=== PATIENT | male | born 1995 | race Caucasian/White ===

== ENCOUNTER 2025-01-27 18:03 | Inpatient (IN) | payer MEDICAID, SELFPAY ==
[2025-01-27 18:24] VITALS: BP 139/95; PULSE 115; RESP 18; O2SAT 98
[2025-01-27 18:33] VITALS: BMI 29.8
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
--- NOTE | 2025-01-27 19:40 | PC.NURSE ---
Pt refused flu vaccine at this time
--- NOTE | 2025-01-27 19:40 | PC.ADMIT ---
Gen is a 29-year-old male admitted from [facility] in [place] to M3 01/27/251816 on a 12A for treatment of depression, suicidal ideation and self-inflicted lacerations. Tox screen not performed. Pt reports drinking 1/2 bottle of herrera knapp per day, last drink was 01/27 in the morning. Pt reports smoking marijuana daily, denies any other substance use. Per crisis eval, pt presented to ED due to worsening depression. He states that he normally engages in self-inflicted laceration and also has a seasonal recruiter who engages in inflicting harm to him which is consensual. Upon arrival to M3, pt was A&Ox4, pleasant and cooperative. Pt exhibited humor and was cooperative with admission process. He reported that his father is living with him which has been a major stressor. He said I came here because I couldn't find my wallet so I got drunk, cut myself, said that I don't want to be alive anymore. Pain makes me feel peaceful. Pt adamantly denies SI/HI/AH/VH. He also reports difficulty maintaining relationships because I'm always giving them so much and I never get the same treatment in return. Pt hopes to be established with providers once discharged. Pt placed on 15 minute checks for safety.
--- NOTE | 2025-01-27 21:30 | P.CONHOSP_ITS ---
History of Present Illness Data of Consult Service Date: 01/27/25 Requesting physician: Aleah Whaley Primary Care Provider: Unknown Physician HPI Reason for consult: medical H&P Patient is a 29-year-old male with a past medical history significant for alcohol use disorder, transferred from [facility] due to depression, SI and self-inflicted lacerations. The patient reports drinking half a bottle of Juan Curiel per day, last drink yesterday morning. He reports smoking marijuana but no additional substance use. Medical history was reviewed with the patient, no baseline medications. He denies any chest pain, shortness of breath, nausea, vomiting, headaches, visual changes, visual/auditory hallucinations or any bothersome symptoms at this time. Review of Systems Constitutional: Constitutional: Denies body ache(s), Denies chills, Denies fatigue, Denies fever(s) and Denies headache(s) Eyes: Eyes: Denies change in vision ENT: Denies headache(s), Denies nasal congestion and Denies sore throat Cardiovascular: Cardiovascular: Denies chest pain, Denies rapid heart rate, Denies leg edema, Denies lightheadedness and Denies dyspnea Respiratory: Respiratory: Denies chest congestion, Denies cough, Denies dyspnea and Denies wheezing Gastrointestinal: Gastrointestinal: Denies abdominal pain, Denies diarrhea, Denies nausea and Denies vomiting Genitourinary: Genitourinary: Denies dysuria, Denies urinary frequency and Denies urinary urgency Musculoskeletal: Musculoskeletal: Denies myalgias Integumentary/Breasts: Skin/Breast: Denies rash Neurologic: Denies confusion and Denies headache(s) Psychiatric: Psychiatric: Denies confusion Endocrine: Endocrine: Denies fatigue Hematologic/Lymphatic: Hematologic/Lymphatic: Denies easy bleeding Allergic/Immunologic: Allergic/Immunologic: Denies wheezing [facility] Medical History (Updated 01/27/25 @ 21:35 by Gloria Donaldson PA-C) Alcohol use disorder Functional capacity: independent ambulation Social History Household Members: Family Housing: Apartment Do you presently have visiting nurse or other home services: No Patient Tobacco Use Status: Never used Tobacco Second Hand Smoke Exposure: No Have you been hit, kicked, punched, or otherwise hurt by someone within the past year? If so, by whom?: No Do you feel safe in your current relationship?: No Current Relationship Is there a partner from a previous relationship who is making you feel unsafe now?: No Are you made to feel afraid or neglected: No Advance Directives: No Advance Directives Information Provided: Yes Do you have a plan to hurt others: No Plan Recently lost weight without trying: No Eating poorly because of decreased appetite: No Nutrition Risks: No Nutritional Risk Poor oral hygiene: No Narrative: 1/2 bottle juan curiel/day, marijuanna daily, no smoking Meds Allergies Allergy/AdvReac Type Severity Reaction Status Date / Time No Known Allergies Allergy Verified 01/27/25 18:13 Active Medications: Current Medications Acetaminophen (Acetaminophen 325 Mg Tablet) 650 mg PO Q6H PRN PRN Reason: Headache/Pain, Scale 1-10 Al Hydroxide/Mg Hydroxide (Magnesium Hydrox/Alum Hydrox 30 Ml Oral.Susp) 30 ml PO Q6H PRN PRN Reason: Heartburn/Nausea Bupropion HCl (Bupropion Hcl Xl 150 Mg Tab.Er.24h) 150 mg PO DAILY NESS Hydroxyzine HCl (Hydroxyzine Hcl 25 Mg Tablet) 25 mg PO Q6H PRN PRN Reason: mild anxiety Lorazepam (Lorazepam 1 Mg Tablet) 1 mg PO Q2H PRN PRN Reason: CIWA 8-11 Lorazepam (Lorazepam 1 Mg Tablet) 2 mg PO Q2H PRN PRN Reason: CIWA 12-15 Magnesium Hydroxide (Milk Of Magnesia 30 Ml Oral.Susp) 30 ml PO DAILY PRN PRN Reason: Constipation Nicotine (Nicotine 21 Mg Patch.Td24) 21 mg TRANSDERMA DAILY PRN PRN Reason: nicotine craving Nicotine Polacrilex (Nicotine Polacrilex 2 Mg Gum) 2 mg BUCCAL Q2H PRN PRN Reason: Nicotine Cravings Olanzapine (Olanzapine 5 Mg Tablet) 5 mg PO BID PRN PRN Reason: agitation Thiamine HCl (Thiamine Hcl 100 Mg Tablet) 100 mg PO DAILY NESS Trazodone HCl (Trazodone Hcl 50 Mg Tablet) 50 mg PO BEDTIME MRX1 PRN PRN Reason: Insomnia Home Medications ?Medication ?Instructions ?Recorded ?Confirmed ?Last Taken ?Type No Known Home Meds 01/27/25 01/27/25 Un known History Physical Exam Vital Signs and Narrative: Vital Signs: Last Vital Signs Pulse 115 H 01/27/25 18:24 Resp 18 01/27/25 18:24 BP 139/95 H 01/27/25 18:24 Pulse Ox 98 01/27/25 18:24 O2 Del Method Room Air 01/27/25 18:24 BMI result Body Mass Index 29.8 General: AOx3, no acute distress, diaphoretic but pt was doing pushups when I came to see him Resp: CTA bilaterally CVS: S1, S2, RRR GI: +BS, NT, no distention Skin: Warm, dry. healing lacerations R forearm, no surrounding erythema, warmth or sign of infection Neuro: Cranial nerves II-XII grossly intact bilaterally. Motor grossly intact bilaterally. 5/5 strength bilateral upper and lower extremities bilaterally. Extremities: No pitting edema Psych: Appropriate affect Const: General: No confusion Orientation/consciousness: No confusion Neuro: General: No confusion Assessment and Plan (1) Medical clearance for psychiatric admission: Status: Acute (2) Alcohol use disorder: Status: Acute Plan Patient is a 29-year-old male with a past medical history significant for alcohol use disorder, transferred from [facility] due to depression, SI and self-inflicted lacerations. SI/mood - plan per psych AUD, no hx etoh withdrawal - etoh level 174 yesterday in ED - monitor CIWA - psych floor ativan protocol - pt not showing signs of withdrawal currently, CIWA 0 - addiction med consult Thank you for allowing me to participate in the pt's care. Signing off. Please contact the medical team if any questions or concerns.
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
[2025-01-28 07:44] VITALS: BP 139/83; PULSE 84; RESP 18; TEMP 36.9; O2SAT 99
[2025-01-28 08:51] LABS: Alanine Aminotransferase 92 U/L (0-40); Albumin Level 5.2 g/dL (3.5-5.0); Alkaline Phosphatase 80 U/L (39-117); Anion Gap 14 (12-20); Aspartate Amino Transferase 76 U/L (5-37); Blood Urea Nitrogen 21 mg/dL (9-16); Calcium 10.4 mg/dL (8.4-10.2); Carbon Dioxide 27 mmol/L (22-29); Chloride 103 mmol/L (96-108); Cholesterol 168 mg/dL (<200); Creatinine Clr Calc Pharmacy 103.3; Estimated Glomerular Filt Rate > 60; HDL Cholesterol 36 mg/dL (>40); Potassium 4.4 mmol/L (3.3-5.1); Sodium 140 mmol/L (135-145); Total Protein 8.6 g/dL (6.5-8.0); Triglycerides 127 mg/dL (<150)
[2025-01-28 09:08] LABS: Free T4 (Free Thyroxine) 1.14 ng/dL (0.71-1.85); Thyroid Stimulating Hormone 1.26 uIU/mL (0.32-4.0)
[2025-01-28 09:20] LABS: Folate 5.4 ng/mL (> or = 4.0); Vitamin B12 300 pg/mL (200-900)
[2025-01-28] MEDS: buPROPion HCl XL 150 MG TAB.ER.24H PO (09:36)
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
[2025-01-28 20:10] VITALS: BP 133/74; PULSE 96; RESP 16; TEMP 36.8; O2SAT 97
[2025-01-29 08:15] VITALS: BP 128/68; PULSE 105; RESP 14; TEMP 36.3; O2SAT 98
[2025-01-29] MEDS: buPROPion HCl XL 150 MG TAB.ER.24H PO (08:28)
--- NOTE | 2025-01-29 09:46 | P.PNPSI_ITS ---
Subjective Subjective Date of Service: 01/29/25 Reason For Visit: Major Deressive D/O recurrent alchohol use disorde Subjective Notes: Conditional Voluntary Interim History: Patient was seen and discussed in rounds today. Records and plans were reviewed. He has settled in and is doing a little better. He scored low on his CIWA. I will leave it for today and can probably be discontinued tomorrow. Tearful at times. No groups. Isolative. Talked openly with staff. Denies any side effects on Wellbutrin which can probably be increased tomorrow. Slept 5 hours. No active SI. No changes were made today Mental Status Exam Mental Status Exam Narrative: In today's visit he is alert, oriented and pleasant. Normal speech. Good eye contact. Affect is appropriate and varied. No signs of psychosis. No AVH. No delusions. No SI. Cognitively intact. Judgment is intact. Moves all limbs. No gait abnormalities. Diagnostics Vital Signs (24Hr): Vital Signs - 24 hr 01/28/25 20:10 01/29/25 08:15 Temperature 98.2 F 97.3 F Pulse Rate 96 105 H Respiratory Rate 16 14 Blood Pressure 133/74 128/68 Pulse Oximetry 97 98 Oxygen Delivery Method Room Air Room Air BMI result Body Mass Index 29.8 Labs 01/28/25 08:14 Labs: Laboratory Results - last 48 hr 01/28/25 08:14 Sodium 140 Potassium 4.4 Chloride 103 Carbon Dioxide 27 Anion Gap 14 BUN 21 H Creatinine 1.06 Estim Creat Clear Calc 103.3 Estimated GFR > 60 Random Glucose 141 H Estimat Average Glucose 151 Hemoglobin A1c % 6.9 H Calcium 10.4 H Total Bilirubin 1.5 H AST 76 H ALT 92 H Alkaline Phosphatase 80 Total Protein 8.6 H Albumin 5.2 H Triglycerides 127 Cholesterol 168 LDL Cholesterol, Calc 107 H HDL Cholesterol 36 L Vitamin B12 300 Folate 5.4 TSH 1.26 Free T4 1.14 Medications Medications Current Medications Acetaminophen (Acetaminophen 325 Mg Tablet) 650 mg PO Q6H PRN PRN Reason: Headache/Pain, Scale 1-10 Al Hydroxide/Mg Hydroxide (Magnesium Hydrox/Alum Hydrox 30 Ml Oral.Susp) 30 ml PO Q6H PRN PRN Reason: Heartburn/Nausea Bacitracin (Bacitracin Oint 14 Gm Tube) 1 appl TOPICAL BID NESS; Protocol Last Admin: 01/29/25 08:29 Dose: Not Given Bupropion HCl (Bupropion Hcl Xl 150 Mg Tab.Er.24h) 150 mg PO DAILY [facility] Last Admin: 01/29/25 08:28 Dose: 150 mg Hydroxyzine HCl (Hydroxyzine Hcl 25 Mg Tablet) 25 mg PO Q6H PRN PRN Reason: mild anxiety Lorazepam (Lorazepam 1 Mg Tablet) 1 mg PO Q2H PRN PRN Reason: CIWA 8-11 Lorazepam (Lorazepam 1 Mg Tablet) 2 mg PO Q2H PRN PRN Reason: CIWA 12-15 Magnesium Hydroxide (Milk Of Magnesia 30 Ml Oral.Susp) 30 ml PO DAILY PRN PRN Reason: Constipation Nicotine (Nicotine 21 Mg Patch.Td24) 21 mg TRANSDERMA DAILY PRN PRN Reason: nicotine craving Nicotine Polacrilex (Nicotine Polacrilex 2 Mg Gum) 2 mg BUCCAL Q2H PRN PRN Reason: Nicotine Cravings Olanzapine (Olanzapine 5 Mg Tablet) 5 mg PO BID PRN PRN Reason: agitation Ondansetron HCl (Ondansetron Odt 4 Mg Tab.Rapdis) 4 mg TRANSLINGU Q6H PRN PRN Reason: Nausea and Vomiting Thiamine HCl (Thiamine Hcl 100 Mg Tablet) 100 mg PO DAILY [facility] Last Admin: 01/29/25 08:28 Dose: 100 mg Trazodone HCl (Trazodone Hcl 50 Mg Tablet) 50 mg PO BEDTIME MRX1 PRN PRN Reason: Insomnia Allergies Allergies Allergy/AdvReac Type Severity Reaction Status Date / Time No Known Allergies Allergy Verified 01/27/25 18:13 Assessment & Plan Assessment & Plan (1) Major depressive disorder, recurrent episode, unspecified: Status: Acute Code(s): F33.9 - Major depressive disorder, recurrent, unspecified (2) Alcohol use disorder: Status: Acute Code(s): F10.90 - Alcohol use, unspecified, uncomplicated (3) ADHD: Status: Acute Code(s): F90.9 - Attention-deficit hyperactivity disorder, unspecified type (4) Autism: Status: Acute Code(s): F84.0 - Autistic disorder (5) Suicidal behavior: Status: Acute Code(s): R45.89 - Other symptoms and signs involving emotional state Plan HPI: patient is a 29 y.o Malay speaking male with hx of depression,anxiety, autism, ADHD who presents with complaint of SI and self-inflicted laceration. Patient reports that he came in about 7 days ago however waited a long time and not seen so he left. Report his mental health has been deteriorating/. Patient sees a therapist as needed. Also reports that he has a Supervisor [employer]ing [employer] who consensual engages in inflicting harm to him. Patient was drunk, black out, cut self and was caught by camera by his cousin who brought him back in the ED. Formulation/clinical reasoning: Overwhelmed, over thinking, increased in anxiety symptoms, SI with inflicted wound/laceration, increasing in alcohol use. resist to treatment. Poor insight and judgment. Thinking he could do everything himself. Hx of ADHD, Autism, MDD, and anxiety. No current treatment, not on meds. No OP providers. Limited family/community support. Given above information. Patient would benefit in restrictive environment for safety, medication management, and refer patient to OP psychiatric services for aftercare. Hospital course: 01/27/25: Start on Wellbutrin XL 150mg for mood/anxiety/depression CIWA protocol q4hr with Ativan PRN. Zofran 4mg PRN for N/V Bacitracin BID on laceration on left arm Reviewed med list with patient regarding PRNs. Plan Patient on 15 minute checks for safety. Admitted to [facility]. TDN Thursday. Work with treatment team to do collateral. Refer to patient to commercial loan specialist: pending Contact the hospitalist regarding hospitalist consultation on admission:pending 01/28:Continue current regimen and plans 01/29:Continue current regimen and plans Reason for continued inpatient stay Substantial Risk for: harm to self and med/psych decompensation Time Spent With Patient Time: Total time managing care of this patient today ____ minutes.
--- NOTE | 2025-01-29 15:37 | MHC.RECOVRN ---
Pt is a 29yo male with a history of Depression and anxiety who was admitted to [facility] for tx of SI w/ SIB. Met w pt in 323 after receiving an addiction consult for evaluation of alcohol use disorder. Upon approach pt is calm, oriented, and talking with peers in the common area of . He is receptive to conversation regarding his alcohol use. Pt reports drinking 6oz to 1/2 of 750mL bottle of Juan Curiel daily or occasionally for the past year. He denies hx of withdrawal seizures or DTs. His last drink was on 01/27. At this time pt is on CIWAS but hasn't been scoring and denies withdrawal symptoms. He appears to be comfortable without any apparent evidence of withdrawal symptoms. Pt is interested in tx recommendations and discussing LUIS E with the addiction medicine provider. He states he has never been to treatment r/t AUD. During the assessment low-risk drinking guidelines were reviewed. Pt was counseled on specific harm-reduction strategies including setting a personal limit of no more than 1-2 drinks per occasion, alternating alcohol with water, pacing intake, and eating food prior to and during drinking.? Reviewed w/ pt the medical risks of heavy or daily use, including liver damage, gastrointestinal irritation, cardiovascular strain, and the dangers of abrupt withdrawal in dependent individuals.? Pt was advised on nutrition, hydration, and vitamin supplementation, including the potential benefit of daily thiamine and multivitamins if use continues at higher levels. Reviewed pt?s readiness for change using motivational interviewing, and reaffirmed pt?s personal values such as his friendships/relationships, finances, and mental health. Treatment options were discussed, including LUIS E, and inpatient & outpatient treatment (ATS, CSS, TSS, IOPs).? Pt agreed to discuss LUIS E with the Addiction Medicine provider and is interested in recovery coaching. ACS team will continue to meet w/pt to support recovery needs. Pt denies questions or concerns. ACS team contact info provided should any questions arise.?
[2025-01-29 19:35] VITALS: BP 138/85; PULSE 130; RESP 16; TEMP 36.2; O2SAT 98
[2025-01-29 23:55] VITALS: PULSE 97; RESP 18
[2025-01-30 04:00] VITALS: PULSE 87; RESP 16
[2025-01-30 07:42] VITALS: BP 167/72; PULSE 85; RESP 20; TEMP 36.3; O2SAT 99
[2025-01-30] MEDS: buPROPion HCl XL 150 MG TAB.ER.24H PO (08:56)
--- NOTE | 2025-01-30 12:48 | HO.PSYCHPN ---
Subjective Subjective Date of Service: 01/30/25 Reason For Visit: Major Deressive D/O recurrent alchohol use disorde Subjective Notes: 3 Day Interim History: Active on unit. social with peers. attending groups. 3 day up on 02/01/25. Patient tearful at times during assessment. Patient reports he doesn't believe he has an alcohol use problem however, after discussing his drinking habits he came to the conclusion that he does have a problem and would like a referral to an outpatient therapist; psychiatric social worker supervisor aware. Patient reports he made a stupid statement while I was drunk about wanting to harm myself but I have no intention of hurting myself . denies SI/HI/VH/AH. continue CIWA. continue current tx plan. Medication Compliance: Yes Side effects from medications: No Attending Groups: Yes Mental Status Exam Mental Status Exam Narrative: Pt is alert and oriented; behavior is cooperative and calm, tearful; dressed in casual attire; mood is described as depressed ; eye contact appropriate; Speech is normal rate, volume and not pressured; thought process is organized; Thought content is on tx; denies SI/HI/VH/AH. Diagnostics Vital Signs (24Hr): Vital Signs - 24 hr 01/29/25 19:35 01/29/25 23:55 01/30/25 04:00 Temperature 97.2 F Pulse Rate 130 H 97 87 Respiratory Rate 16 18 16 Blood Pressure 138/85 Pulse Oximetry 98 Oxygen Delivery Method Room Air 01/30/25 07:42 Temperature 97.4 F Pulse Rate 85 Respiratory Rate 20 Blood Pressure 167/72 H Pulse Oximetry 99 Oxygen Delivery Method Room Air BMI result Body Mass Index 29.8 Labs 01/28/25 08:14 Medications Medications Current Medications Acetaminophen (Acetaminophen 325 Mg Tablet) 650 mg PO Q6H PRN PRN Reason: Headache/Pain, Scale 1-10 Al Hydroxide/Mg Hydroxide (Magnesium Hydrox/Alum Hydrox 30 Ml Oral.Susp) 30 ml PO Q6H PRN PRN Reason: Heartburn/Nausea Bacitracin (Bacitracin Oint 14 Gm Tube) 1 appl TOPICAL BID NESS; Protocol Last Admin: 01/30/25 09:06 Dose: Not Given Bupropion HCl (Bupropion Hcl Xl 150 Mg Tab.Er.24h) 150 mg PO DAILY NESS Last Admin: 01/30/25 08:56 Dose: 150 mg Hydroxyzine HCl (Hydroxyzine Hcl 25 Mg Tablet) 25 mg PO Q6H PRN PRN Reason: mild anxiety Lorazepam (Lorazepam 1 Mg Tablet) 1 mg PO Q2H PRN PRN Reason: CIWA 8-11 Last Admin: 01/29/25 20:06 Dose: 1 mg Lorazepam (Lorazepam 1 Mg Tablet) 2 mg PO Q2H PRN PRN Reason: CIWA 12-15 Magnesium Hydroxide (Milk Of Magnesia 30 Ml Oral.Susp) 30 ml PO DAILY PRN PRN Reason: Constipation Nicotine (Nicotine 21 Mg Patch.Td24) 21 mg TRANSDERMA DAILY PRN PRN Reason: nicotine craving Nicotine Polacrilex (Nicotine Polacrilex 2 Mg Gum) 2 mg BUCCAL Q2H PRN PRN Reason: Nicotine Cravings Olanzapine (Olanzapine 5 Mg Tablet) 5 mg PO BID PRN PRN Reason: agitation Last Admin: 01/29/25 16:57 Dose: 5 mg Ondansetron HCl (Ondansetron Odt 4 Mg Tab.Rapdis) 4 mg TRANSLINGU Q6H PRN PRN Reason: Nausea and Vomiting Thiamine HCl (Thiamine Hcl 100 Mg Tablet) 100 mg PO DAILY NESS Last Admin: 01/30/25 08:56 Dose: 100 mg Trazodone HCl (Trazodone Hcl 50 Mg Tablet) 50 mg PO BEDTIME MRX1 PRN PRN Reason: Insomnia Allergies Allergies Allergy/AdvReac Type Severity Reaction Status Date / Time No Known Allergies Allergy Verified 01/27/25 18:13 Assessment & Plan Assessment & Plan (1) Major depressive disorder, recurrent episode, unspecified: Status: Acute Code(s): F33.9 - Major depressive disorder, recurrent, unspecified (2) Alcohol use disorder: Status: Acute Code(s): F10.90 - Alcohol use, unspecified, uncomplicated (3) ADHD: Status: Acute Code(s): F90.9 - Attention-deficit hyperactivity disorder, unspecified type (4) Autism: Status: Acute Code(s): F84.0 - Autistic disorder (5) Suicidal behavior: Status: Acute Code(s): R45.89 - Other symptoms and signs involving emotional state Plan patient is a 29 y.o Turkish speaking male with hx of depression,anxiety, autism, ADHD who presents with complaint of SI and self-inflicted laceration. Patient reports that he came in about 7 days ago however waited a long time and not seen so he left. Report his mental health has been deteriorating/. Patient sees a therapist as needed. 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 Patient was drunk, black out, cut self and was caught by camera by his cousin who brought him back in the ED. Formulation/clinical reasoning: Overwhelmed, over thinking, increased in anxiety symptoms, SI with inflicted wound/laceration, increasing in alcohol use. resist to treatment. Poor insight and judgment. Thinking he could do everything himself. Hx of ADHD, Autism, MDD, and anxiety. No current treatment, not on meds. No OP providers. Limited family/community support. Given above information. Patient would benefit in restrictive environment for safety, medication management, and refer patient to OP psychiatric services for aftercare. Plan: Patient on 15 minute checks for safety. Admitted to [facility]. TDN Thursday. Work with treatment team to do collateral. Refer to patient to physician credentialing specialist: pending Contact the hospitalist regarding hospitalist consultation on admission:pending 01/27: Start on Wellbutrin XL 150mg for mood/anxiety/depression. CIWA protocol q4hr with Ativan PRN. Zofran 4mg PRN for N/V Bacitracin BID on laceration on left arm. Reviewed med list with patient regarding PRNs. 01/28:Continue current regimen and plans 01/29:Continue current regimen and plans 01/30: Active on unit. social with peers. attending groups. 3 day up on 02/01/25. Patient tearful at times during assessment. Patient reports he doesn't believe he has an alcohol use problem however, after discussing his drinking habits he came to the conclusion that he does have a problem and would like a referral to an outpatient therapist; psychiatric social worker supervisor aware. Patient reports he made a stupid statement while I was drunk about wanting to harm myself but I have no intention of hurting myself . denies SI/HI/VH/AH. continue CIWA. continue current tx plan. Patient educated on: diagnosis, medication risk/benefits, substance abuse and therapeutic strategies Reason for continued inpatient stay Substantial Risk for: med/psych decompensation Time Spent With Patient Time: Total time managing care of this patient today _20___ minutes.
--- NOTE | 2025-01-30 13:53 | PM.EVENT ---
Event Note Date of Service: 01/30/25 Event Note: Addiction consult placed for patient related to alcohol use Seen by franchise business consultant over the weekend-expressed interest in possibly starting LUIS E Discussed with attending provider-they will follow up with patient regarding this No follow up indicated at this time from [facility] Time Spent With Patient Time: Total time managing care of this patient today ____ minutes.
[2025-01-30 19:54] VITALS: BP 131/72; PULSE 127; RESP 18; TEMP 36.8; O2SAT 97
[2025-01-31 08:00] VITALS: BP 126/77; PULSE 67; RESP 16; TEMP 36.3; O2SAT 98
[2025-01-31] MEDS: buPROPion HCl XL 150 MG TAB.ER.24H PO (08:41)
--- NOTE | 2025-01-31 11:50 | HO.PSYCHPN ---
Subjective Subjective Date of Service: 01/31/25 Reason For Visit: Major Deressive D/O recurrent alchohol use disorde Subjective Notes: 3 Day Interim History: Active on unit. social with peers. attending groups. Patient reports feeling better ; pt stated, I know I need to stop drinking. I plan on going to the gym with my sister and looking up AA meetings. I know I need to be disciplined . denies SI/HI/VH/AH. Patient denies withdrawal symptoms. EPIFANIO MARCELINO. 3 day notice up on 02/01/25. Medication Compliance: Yes Side effects from medications: No Attending Groups: Yes Mental Status Exam Mental Status Exam Narrative: Pt is alert and oriented; behavior is cooperative and calm; dressed in casual attire; mood is described as better ; eye contact appropriate; Speech is normal rate, volume and not pressured; thought process is organized; Thought content is on tx/discharge; denies SI/HI/VH/AH. Diagnostics Vital Signs (24Hr): Vital Signs - 24 hr 01/30/25 19:54 01/31/25 08:00 Temperature 98.2 F 97.4 F Pulse Rate 127 H 67 Respiratory Rate 18 16 Blood Pressure 131/72 126/77 Pulse Oximetry 97 98 Oxygen Delivery Method Room Air Room Air BMI result Body Mass Index 29.8 Labs 01/28/25 08:14 Medications Medications Current Medications Acetaminophen (Acetaminophen 325 Mg Tablet) 650 mg PO Q6H PRN PRN Reason: Headache/Pain, Scale 1-10 Al Hydroxide/Mg Hydroxide (Magnesium Hydrox/Alum Hydrox 30 Ml Oral.Susp) 30 ml PO Q6H PRN PRN Reason: Heartburn/Nausea Bacitracin (Bacitracin Oint 14 Gm Tube) 1 appl TOPICAL BID NESS; Protocol Last Admin: 01/31/25 09:18 Dose: Not Given Bupropion HCl (Bupropion Hcl Xl 150 Mg Tab.Er.24h) 150 mg PO DAILY NESS Last Admin: 01/31/25 08:41 Dose: 150 mg Hydroxyzine HCl (Hydroxyzine Hcl 25 Mg Tablet) 25 mg PO Q6H PRN PRN Reason: mild anxiety Magnesium Hydroxide (Milk Of Magnesia 30 Ml Oral.Susp) 30 ml PO DAILY PRN PRN Reason: Constipation Nicotine (Nicotine 21 Mg Patch.Td24) 21 mg TRANSDERMA DAILY PRN PRN Reason: nicotine craving Nicotine Polacrilex (Nicotine Polacrilex 2 Mg Gum) 2 mg BUCCAL Q2H PRN PRN Reason: Nicotine Cravings Olanzapine (Olanzapine 5 Mg Tablet) 5 mg PO BID PRN PRN Reason: agitation Last Admin: 01/29/25 16:57 Dose: 5 mg Ondansetron HCl (Ondansetron Odt 4 Mg Tab.Rapdis) 4 mg TRANSLINGU Q6H PRN PRN Reason: Nausea and Vomiting Trazodone HCl (Trazodone Hcl 50 Mg Tablet) 50 mg PO BEDTIME MRX1 PRN PRN Reason: Insomnia Allergies Allergies Allergy/AdvReac Type Severity Reaction Status Date / Time No Known Allergies Allergy Verified 01/27/25 18:13 Assessment & Plan Assessment & Plan (1) Major depressive disorder, recurrent episode, unspecified: Status: Acute Code(s): F33.9 - Major depressive disorder, recurrent, unspecified (2) Alcohol use disorder: Status: Acute Code(s): F10.90 - Alcohol use, unspecified, uncomplicated (3) ADHD: Status: Acute Code(s): F90.9 - Attention-deficit hyperactivity disorder, unspecified type (4) Autism: Status: Acute Code(s): F84.0 - Autistic disorder (5) Suicidal behavior: Status: Acute Code(s): R45.89 - Other symptoms and signs involving emotional state Plan patient is a 29 y.o Mauritanian speaking male with hx of depression,anxiety, autism, ADHD who presents with complaint of SI and self-inflicted laceration. Patient reports that he came in about 7 days ago however waited a long time and not seen so he left. Report his mental health has been deteriorating/. Patient sees a therapist as needed. Also reports that he has a Mapping Specialist who consensual engages in inflicting harm to him. Patient was drunk, black out, cut self and was caught by camera by his cousin who brought him back in the ED. Formulation/clinical reasoning: Overwhelmed, over thinking, increased in anxiety symptoms, SI with inflicted wound/laceration, increasing in alcohol use. resist to treatment. Poor insight and judgment. Thinking he could do everything himself. Hx of ADHD, Autism, MDD, and anxiety. No current treatment, not on meds. No OP providers. Limited family/community support. Given above information. Patient would benefit in restrictive environment for safety, medication management, and refer patient to OP psychiatric services for aftercare. Plan: Patient on 15 minute checks for safety. Admitted to [facility]. TDN Thursday. Work with treatment team to do collateral. Refer to patient to certified technician specialist: pending Contact the hospitalist regarding hospitalist consultation on admission:pending 01/27: Start on Wellbutrin XL 150mg for mood/anxiety/depression. CIWA protocol q4hr with Ativan PRN. Zofran 4mg PRN for N/V Bacitracin BID on laceration on left arm. Reviewed med list with patient regarding PRNs. 01/28:Continue current regimen and plans 01/29:Continue current regimen and plans 01/30: Active on unit. social with peers. attending groups. 3 day up on 02/01/25. Patient tearful at times during assessment. Patient reports he doesn't believe he has an alcohol use problem however, after discussing his drinking habits he came to the conclusion that he does have a problem and would like a referral to an outpatient therapist; social organization professor aware. Patient reports he made a stupid statement while I was drunk about wanting to harm myself but I have no intention of hurting myself . denies SI/HI/VH/AH. continue CIWA. continue current tx plan. 01/31: Active on unit. social with peers. attending groups. Patient reports feeling better ; pt stated, I know I need to stop drinking. I plan on going to the gym with my sister and looking up AA meetings. I know I need to be disciplined . denies SI/HI/VH/AH. Patient denies withdrawal symptoms. EPIFANIO MARCELINO. 3 day notice up on 02/01/25. Patient educated on: diagnosis and medication risk/benefits Reason for continued inpatient stay Substantial Risk for: stable for discharge Time Spent With Patient Time: Total time managing care of this patient today _20___ minutes.
[2025-01-31 19:35] VITALS: BP 140/76; PULSE 110; RESP 16; TEMP 36.6; O2SAT 99
[2025-01-31 20:20] VITALS: PULSE 103
[2025-02-01 08:00] VITALS: BP 139/96; PULSE 100; RESP 16; TEMP 36.7; O2SAT 99
[2025-02-01] MEDS: buPROPion HCl XL 150 MG TAB.ER.24H PO (08:27)
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
== END 2025-02-01 10:15 | disposition home or self-care (01) | DRG 751 ==
PROVIDERS: Nurse Practitioner Psychiatric/Mental Health; Admitting Provider Psychiatry & Neurology Psychiatry; Responsible Provider Registered Nurse; Visit Provider Psychiatry & Neurology Psychiatry
DX: F33.9 Major depressive disorder, recurrent, unspecified (principal); R45.851 Suicidal ideations; F84.0 Autistic disorder; F90.9 Attention-deficit hyperactivity disorder, unspecified type; F10.90 Alcohol use, unspecified, uncomplicated; Z79.899 Other long term (current) drug therapy
CPT/HCPCS: 36415; 80053; 80061; 82607; 82746; 83036; 84439; 84443

== ENCOUNTER → 2025-01-27 18:03 | Outpatient (BNV) | payer BC, SELFPAY | PROVIDERS: Admitting Provider Psychiatry & Neurology Psychiatry; Visit Provider Psychiatry & Neurology Psychiatry | DX: F33.9 Major depressive disorder, recurrent, unspecified (principal); F10.90 Alcohol use, unspecified, uncomplicated; F90.9 Attention-deficit hyperactivity disorder, unspecified type; F84.0 Autistic disorder; R45.89 Other symptoms and signs involving emotional state | CPT/HCPCS: 90792; 99231; 99232; 99499 ==

== ENCOUNTER → 2025-01-27 18:03 | Outpatient (BNV) | payer BC, SELFPAY | PROVIDERS: Admitting Provider Psychiatry & Neurology Psychiatry; Visit Provider Physician Assistant | DX: Z02.2 Encounter for examination for admission to residential institution (principal) | CPT/HCPCS: 99429 ==